=== PATIENT | female | born 1995 | race African-American/Black ===

== ENCOUNTER 2018-06-17 22:04 | Emergency (ER) | payer OTHER ==
[~2018-06-17] VITALS: Ht 154.9 cm; Wt 56.7 kg
--- NOTE | 2018-06-17 22:23 | NUR ---
PT BIBSELF C/O SOB X30 MIN. HX OF ASTHMA. NO INHALER AT HOME. PT IS AOX4, VSS, RESPIRATIONS EVEN AND UNLABORED. NO ACUTE DISTRESS NOTED. SKIN WARM TO TOUCH, DRY, INTACT. MOM AT BEDSIDE. READY FOR EVAL
[2018-06-17] MEDS ORDERED: ALBUTEROL FS 2.5 MG/0.5 ML VIAL.NEB NEB ONE (22:30)
--- NOTE | 2018-06-17 22:30 | NUR ---
RT AT BEDSIDE FOR BREATHING TX
--- NOTE | 2018-06-17 23:15 | NUR ---
Patient discharged to home in stable condition. Written and verbal after care instructions given. Patient verbalizes understanding of instruction.
[2018-06-17 23:16] VITALS: BP 127/82
== END 2018-06-17 23:31 | disposition home or self-care (01) ==
LOC: ER 22:06
DX: J98.01 Acute bronchospasm (principal); Z88.0 Allergy status to penicillin
CPT/HCPCS: 94640; 99283; A4606; Z7610

== ENCOUNTER 2018-06-20 01:41 | Emergency (ER) | payer OTHER ==
[~2018-06-20] VITALS: Ht 154.9 cm; Wt 56.7 kg
[2018-06-20 01:44] VITALS: BP 128/83
[2018-06-20] MEDS ORDERED: ALBUTEROL FS 2.5 MG/3 ML VIAL.NEB ONE (01:59)
[2018-06-20] MEDS ORDERED: IPRATROPIUM NEB FS 0.5 MG/2.5 ML AMPUL.NEB ONE (01:59)
[2018-06-20] MEDS ORDERED: FAMOTIDINE (20 MG) 20 MG TABLET PO ONE (02:00)
[2018-06-20] MEDS ORDERED: ALBUTEROL FS 2.5 MG/3 ML VIAL.NEB NEB ONE (02:00)
[2018-06-20] MEDS ORDERED: IPRATROPIUM NEB FS 0.5 MG/2.5 ML AMPUL.NEB NEB ONE (02:00)
[2018-06-20] MEDS ORDERED: predniSONE 20 MG TABLET PO ONE (02:00)
[2018-06-20] MEDS ORDERED: predniSONE 20 MG TABLET ONE (03:06)
[2018-06-20] MEDS ORDERED: FAMOTIDINE (20 MG) 20 MG TABLET ONE (03:06)
== END 2018-06-20 03:17 | disposition home or self-care (01) ==
LOC: ER 01:43
DX: J45.909 Unspecified asthma, uncomplicated (principal); Z88.0 Allergy status to penicillin
CPT/HCPCS: A4606; Z7610